=== PATIENT | female | born 1980 | race Caucasian/White ===

== ENCOUNTER → 2017-05-25 10:00 | Outpatient (CLI) | payer BC, SELFPAY ==
[2017-05-25 10:51] LABS: Absolute Lymphocyte Count 1.35 X10^3/ul (0.83-4.51); Absolute Neutrophil Count 3.4 X10^3/uL (2.0-7.7); Basophil# 0.03 X10^3/uL; Basophil% 0.5 % (0-1); Eosinophil# 0.07 X10^3/uL; Eosinophils% 1.3 % (0-5); Hematocrit 42.4 % (37-47); Hemoglobin 13.9 g/dl (12.0-15.0); Lymphocyte # 1.35 X10^3/ul (4.0); Lymphocyte % 24.7 % (19-41); Mean Corp Hgb Conc 32.8 g/gl (32-36); Mean Corpuscular Hgb 29.1 pg (27.0-32.0); Mean Corpuscular Volume 88.7 fL (81-99); Monocyte# 0.59 X10^3/uL; Monocyte% 10.8 % (0-10); Neutrophil # 3.41 X10^3/uL (2.7-7.7); Neutrophil % 62.3 % (47-70); POSITIVE COUNT NO; POSITIVE DIFFERENTIAL NO; POSITIVE MORPHOLOGY NO; Platelet Count 316 K/mm3 (150-450); RBC Distribution Width CV 13.3 % (11.6-14.6); RBC Distribution Width SD 42.8 fl (35.1-43.9); Red Blood Count 4.78 M/mm3 (4.2-5.4); White Blood Count 5.5 K/mm3 (4.4-11.0)
[2017-05-25 10:52] LABS: Color, Urine Yellow (Yellow); Glucose, Dipstick Normal (Normal); Ketone-Dipstick Negative (Negative); Leukocyte Esterase-Dipstick Negative /ul (Negative); Nitrite-Dipstick Negative (Negative); Occult Blood-Urine Negative /ul (Negative); Protein-Dipstick Negative (Negative); Specific Gravity, Urine 1.005 (1.002-1.030); Urine Bilirubin Dipstick Negative (Negative); Urine Clarity Clear (Clear); Urine Urobilinogen Normal (Normal)
[2017-05-25 11:17] LABS: Thyroid Stim Hormone (TSH) 1.47 uIU/mL (0.358-3.74)
[2017-05-26 09:40] LABS: HIV - WCH Non-Reactive (Nonreactive)
[2017-05-26 13:58] LABS: HEPATITIS B SURFACE AG Negative (Negative); Hep C Antibodies <0.1 s/co ratio (0.0-0.9)
[2017-05-28 03:48] LABS: Prenatal RPR NONREACTIVE (NONREACTIVE)
== END ==
PROVIDERS: Visit Provider Obstetrics & Gynecology
DX: Z34.81 Encounter for supervision of other normal pregnancy, first trimester (principal)
CPT/HCPCS: 36415; 81002; 84443; 85025; 86703; 86762; 86803; 87340

== ENCOUNTER → 2017-06-23 09:16 | Outpatient (CLI) | payer BC, SELFPAY ==
[2017-06-25 05:07] LABS: AFP MoM Value 0.64 (.); Comment Report (.); DIA MoM Value 0.53 (.); DSR (By Age) 239 (.); DSR (Second Trimester) 4808 (.); Gestat. Age Based On As provided (.); Gestational Age 15.1 WEEKS (.); Insulin Dep Diabetes No (.); hCG Value 23771 mIU/mL (.)
== END ==
PROVIDERS: Visit Provider Obstetrics & Gynecology
DX: O09.511 Supervision of elderly primigravida, first trimester (principal)
CPT/HCPCS: 36415; 82105; 82677; 84702; 86336

== ENCOUNTER → 2017-09-22 08:35 | Outpatient (CLI) | payer BC, SELFPAY ==
--- NOTE | 2017-09-22 08:35 | DT_ITS ---
This patient was seen during an EMR downtime September 20, 2017 - September 27, 2017. This patient may have a combination of paper and electronic documentation or all paper documentation. All documentation is viewable within the e-chart portion of [employer] for each patient visit.
[2017-09-26 10:04] LABS: Glucose Challenge Gest 1H 50g 120 mg/dL (70-140)
[2017-09-26 10:14] LABS: Red Blood Count 4.08 M/mm3 (4.2-5.4); White Blood Count 9.9 K/mm3 (4.4-11.0)
[2017-09-26 10:15] LABS: Hematocrit 36.3 % (37-47); Hemoglobin 11.8 g/dl (12.0-15.0); Mean Corp Hgb Conc 32.5 g/gl (32-36); Mean Corpuscular Hgb 28.9 pg (27.0-32.0); Mean Platelet Vol. 11.3 fl (6.2-12.0); Platelet Count 353 K/mm3 (150-450); RBC Distribution Width SD 44.2 fl (35.1-43.9); Scan Indicated on CBC? Y/N NO
== END ==
PROVIDERS: Visit Provider Obstetrics & Gynecology
DX: Z34.83 Encounter for supervision of other normal pregnancy, third trimester (principal)
CPT/HCPCS: 36415; 82950; 85027

== ENCOUNTER → 2017-11-24 15:23 | Outpatient (CLI) | payer BC, SELFPAY ==
[2017-11-24 18:30] LABS: Group B Strep DNA By PCR POSITIVE (Negative); Probe Check PASS
== END ==
PROVIDERS: Visit Provider Obstetrics & Gynecology
DX: Z36.85 Encounter for antenatal screening for Streptococcus B (principal)
CPT/HCPCS: 87653

== ENCOUNTER 2017-12-21 19:45 | Inpatient (IN) | payer BC, SELFPAY ==
[2017-12-21 20:23] VITALS: BMI 40.0
[2017-12-21] MEDS: 0.9% Saline Lock 10 ML Syringe IV (20:30)
[2017-12-21 20:46] LABS: Hematocrit 36.9 % (37-47); Hemoglobin 12.6 g/dl (12.0-15.0); Mean Corp Hgb Conc 34.1 g/gl (32-36); Mean Corpuscular Hgb 29.7 pg (27.0-32.0); Mean Platelet Vol. 11.3 fl (6.2-12.0); Platelet Count 352 K/mm3 (150-450); RBC Distribution Width SD 43.5 fl (35.1-43.9); Red Blood Count 4.24 M/mm3 (4.2-5.4); Scan Indicated on CBC? Y/N NO; White Blood Count 13.1 K/mm3 (4.4-11.0)
[2017-12-21] MEDS: miSOPROStol 25 MCG TABLET PO (20:51)
[2017-12-22] MEDS: miSOPROStol 25 MCG TABLET PO ×2 (01:24→05:18)
--- NOTE | 2017-12-22 07:35 | PCM.PN.BLA ---
Progress Note 41 wk induction oligo/ anhydramnios cytotec overnight. minimal cramping. Able to rest. States none of this was in her plan for delivery. But aware not able to continue expectant management 2/2 little to no fluid on sono. AVSS EFM 130-140s avg variability. Accels. Category I tracing. UCs rare. CX: dimple, midposition -3 Greco bulb inserted with stylette, 20 cc NS used to inflate bulb. Initially brisk bleeding noted. (continue to observe this for now) A/P: 41 wk induction oligo/anhydramnios. S/P Cytotec 3 doses. Cervix now dimple, midposition. moderately firm. D/C cytotec. Greco bulb placed. Pitocin and AROM when able. continue induction.
[2017-12-22] MEDS: 0.9% Normal Saline 100 ML IV.SOLN. INTRA-UTER (08:22)
[2017-12-22] MEDS: Lactated Ringers 1,000 ML 50 ML IV ×3 (09:09→21:00)
[2017-12-22] MEDS: Oxytocin 30 units/NS 500 ml 30 UNITS/500 ML IV.SOLN IV (09:09)
[2017-12-22] MEDS: 0.9% Saline Lock 10 ML Syringe IV (09:09)
--- NOTE | 2017-12-22 13:25 | PCM.PN.BLA ---
Progress Note LABOR INDUCTION OLIGO 41 wks. Uncomfortable with cervical townsend bulb. Pitocin at 10 mIU/min EFH 130-140 with accels Category I tracing. Occasional ? decel but not able to always track UCs. UCs q 2-3 mins for most part CX: Townsend deflated. Cx 2 cm anterior, approx 75% mod consistency, very high. AROM little to no fluid returned. Attempted IUPC placement but unable to guide through minimally dilated cervix. A/P: 41 wk induction Oligo with ROYAL 1 cm on sono 12/21/17. S/P Cytotec, Townsend bulb and now with Pitocin AROM performed. Continue Pitocin Declines pain med for now. States painful only with exam and what was just attempted (IUPC placement after AROM)
--- NOTE | 2017-12-22 13:29 | PN_ITS ---
Progress Note LABOR INDUCTION OLIGO 41 wks. Uncomfortable with cervical townsend bulb. Pitocin at 10 mIU/min EFH 130-140 with accels Category I tracing. Occasional ? decel but not able to always track UCs. UCs q 2-3 mins for most part CX: Townsend deflated. Cx 2 cm anterior, approx 75% mod consistency, very high. AROM little to no fluid returned. Attempted IUPC placement but unable to guide through minimally dilated cervix. A/P: 41 wk induction Oligo with ROYAL 1 cm on sono 12/21/17. S/P Cytotec, Townsend bulb and now with Pitocin AROM performed. Continue Pitocin Declines pain med for now. States painful only with exam and what was just attempted ( IUPC placement after AROM)
[2017-12-22] MEDS: Nalbuphine 10 MG/ML Ampul IV ×2 (13:41→20:30)
--- NOTE | 2017-12-22 16:41 | PCM.PN.BLA ---
Progress Note LABOR PROGRESS NOTE Got a dose of Nubain and was able to sleep for two hours. Not uncomfortable at all. Her mother is in the room and relates she had to have a C/s AVSS Pitocin at 12 mIU/min EFM 130-140 category I tracing. UCs irregular with dysfunctional pattern. Coupling, tripling and spacing. q 1 - 4 mins CX: remains very high. Anterior / mod firm. A/P: 41 wk oligo induction. Category I tracing. Prodromal labor. Not at all uncomfortable. reviewed plan of care. Continue induction, pitocin after AROM. recommend position changes to assist rotation and descent. Advised : -- if ROM and pitocin for 24 hr w/o change, consider C/S. -- If reaches active labor at 4-6 cm and no further change for at least 4 - 6 hrs (inadequate vs adequate UCs) consider C/S. Not at all uncomfortable. Very early prodromal phase Reg diet, light dinner. Continue induction.
[2017-12-22] MEDS: fentaNYL-bupivacaine (epidural) 100 ML BAG EPIDURAL (23:18)
--- NOTE | 2017-12-23 00:33 | PCM.PN.OB ---
Subjective: Feeling contractions strongly despite epidural. Objective: Afeb VSS - Physical Exam General: Alert, Oriented x3, Cooperative, No apparent distress Lungs: Clear to auscultation, Normal air movement Cardiovascular: Regular rate, Regular Rhythm Abdomen: Soft, Non-Distended, Gravid, Appropriate for Gestational Age Extremities: No edema Skin: No rashes Neurological: Neuro grossly intact Psych/Mental Status: Normal Affect Comment: CE FD +2 station Weight: 255 lb 8.252 oz Body Mass Index (BMI) 40.0 Intake and Output for Last 24 Hours 12/21/17 12/22/17 12/23/17 23:59 23:59 23:59 Intake Total 1490 / 1490 Output Total 1400 / 1400 Balance 90 / 90 Medical Necessity - Tobacco Use Smoking Status: Never smoker Assessment/Plan Progressed rapidly from 6 cm to FD. Now starting pushing efforts. CAT 1 FHR tracing. Expect .
--- NOTE | 2017-12-23 00:41 | PCM.DCVAG ---
Discharge Diet: No Restrictions Discharge Activity: Return to Normal Activity, May Drive, May Shower Return to work on:: 02/21/18 May shower in (days): 0 May resume sexual activity in: 4-6 weeks Call your doctor if your incision/area has: Sudden Increased Bleeding, Increased Pain/ Swelling, Foul Smelling Discharge Call your doctor if you observe: Fever of 101 or Higher, Inability to urinate, Inability to have a bowel movement, Using more than one pad per hour, Shortness of breath, Chest pain, Calf discomfort, Uncontrolled pain Cleanse incision/area with: Soap & Water Additional Instructions: If you experience any of the following, contact your healthcare provider. Bleeding that soaks a pad every hour for 2 hours Fever 100.4 or higher Unrelieved incision or abdominal pain Swelling, redness, discharge or bleeding from your incision or episiotomy site Your incision begins to separate Problems urinating (including inability to urinate or burning while urinating). Visual changes Severe headache Flu-like symptoms Pain or redness in one of both of your breasts Pain, warmth, tenderness or swelling in your legs, especially the calf area Frequent nausea and vomiting Symptoms of depression or anxiety If you experience any of the following, call 911 or go to the nearest Emergency Room. Chest pain Problems breathing Seizure activity Partial or complete paralysis of a body part, slurred speech, weakness or drooping of the face, or a sudden inability to walk or hold your balance Allergies/Adverse Reactions: Allergies mefloquine [From Lariam] Allergy (Verified 12/21/17 20:25) Other nightmares Medications to take at Discharge Ibuprofen 600 mg PO Q6H PRN PRN #30 tab 12/23/17 The following prescriptions were given: Ibuprofen 600 mg PO Q6H PRN PRN #30 tab PRN Reason: pain or cramping Please Follow Up With: Iesha Villafuerte MD When: 6 weeks Primary Care Physician: Robbie Velazquez MD [Primary Care Provider] - Test Results: Test results from this visit will be discussed in further detail at your follow-up appointment, if applicable.
[2017-12-23] MEDS: Oxytocin 30 units/NS 500 ml 30 UNITS/500 ML IV.SOLN 334 UNITS IV (00:56)
[2017-12-23] MEDS: Oxytocin 30 units/NS 500 ml 30 UNITS/500 ML IV.SOLN 167 UNITS IV (01:26)
--- NOTE | 2017-12-23 01:31 | PCM.OB.VAG ---
Vaginal Delivery Maternal Presentation: Medically Indicated Induction 41 weeks admitted for postdates induction Method of Induction: Pitocin, Cytotec Amniotic Membrane Rupture Type: Artificial Rupture of Membrane time: 729 Amniotic Fluid Description: Clear Final SHARLENE: 12/16/17 Final SHARLENE Source: US <20 weeks Gestational age: 41 Weeks and 0 Days Date of Procedure: 12/23/17 Pre-Operative Diagnosis: Labor Post-Operative Diagnosis: same Surgery/ Procedure Performed: Vacuum Assisted Vaginal Delivery Anesthesiologist: Darrell Brannon Type of Anesthesia: Epidural Description of Procedure: Patient admitted and underwent cytotec then pitocin induction. Progressed rapidly from 2 to 6 and then FD over about 2 hours. Pushed for about 30 minutes to bring heaf to +3 station. Due to heart rate decelerations to 60 decision made to assist delivery with Kiwi vacuum device. The the device was placed and by holding minimal traction while Holden pushed head was delivered over one contraction. There was a loose CAN x 1 easily reduced. After delivery there was an active cry within first minute of life. Delayed cord clamping was employed. The cord was then clamped and cut and baby placed on mom's chest. The placenta was delivered spontaneously intact with a centrally located 3VC. The uterus contracted well. Inspection revealed an intact cervix and upper vagina. A bilateral posterior vaginal second degree tear was repaired with 2-0 vicrylsuture. A smal right periurethral tear was repaired with 3-0 vicryl rapide suture. Presentation: Vertex Placental Delivery Description: Spontaneous Placenta Disposition: [facility] Percentage of Placenta Abruption: 0 Cord Vessel Description: 3 Vessels Nuchal Cord Compression: Without compression Cord Entanglement: Around neck x 1, loose Estimated Blood Loss: 400cc A gender: Male (1 minute): 8 (5 minute): 8 Episiotomy Description: None Laceration: Midline, Periurethral Extnsion/lac, Vaginal Extension/lac, 1st degree, 2nd degree Medications given after delivery: IV Pitocin Complications: None
[2017-12-23] MEDS: Ibuprofen 600 MG Tablet PO ×3 (06:22→19:03)
--- NOTE | 2017-12-23 07:46 | PCM.PN.OB ---
Subjective: Day of Delivery no void yet per RN. Pt breast feeding and would like to do that prior to attempting to void. Denies feeling full. Advised 8 hr w/o void is long interval. May need catheter reinsertion. Advised may use sono to check bladder vol prior to insertion of townsend. On pitocin for a long time, which will act as an antidiuretic hormone. Pain control adequate at present. Lacerations at delivery and states everything swollen. Objective: Sitting up, semirecumbent in bed, holding baby - Physical Exam General: Alert, Oriented x3, Cooperative, No apparent distress HEENT: Atraumatic Neck: Supple, Negative Carotid Bruits Abdomen: Soft - Fundus firm NT inferior to umbilicus Neurological: Cranial nerves II-XII grossly intact Weight: 115.9 kg Body Mass Index (BMI) 40.0 Intake and Output for Last 24 Hours 12/21/17 12/22/17 12/23/17 23:59 23:59 23:59 Intake Total 1490 / 1490 Output Total 1400 / 1400 Balance 90 / 90 Medical Necessity - Tobacco Use Smoking Status: Never smoker Assessment/Plan Day of Delivery 41 wk prolonged induction to vaginal delivery Stable pp. Bladder scan, consider townsend vs str cath prn Continue care.
[2017-12-23 08:00] VITALS: BP 128/71; PULSE 94; RESP 16; TEMP 37.1
[2017-12-23] MEDS: Acetaminophen 500 MG Tablet 1000 MG PO ×2 (08:13→16:11)
[2017-12-23 12:55] VITALS: BP 116/79; PULSE 101; RESP 16; TEMP 36.8; O2SAT 98
[2017-12-23 16:00] VITALS: BP 112/71; PULSE 98; RESP 24; TEMP 37.2; O2SAT 100
[2017-12-23 20:30] VITALS: BP 132/77; PULSE 104; RESP 16; TEMP 36.6
[2017-12-24 01:40] VITALS: BP 116/69; PULSE 83; RESP 16; TEMP 36.8
[2017-12-24] MEDS: Ibuprofen 600 MG Tablet PO ×2 (01:44→08:12)
[2017-12-24 04:30] VITALS: BP 108/73; PULSE 93; RESP 16; TEMP 36.9
[2017-12-24 04:53] LABS: Hematocrit 27.2 % (37-47); Hemoglobin 8.9 g/dl (12.0-15.0); Mean Corp Hgb Conc 32.7 g/gl (32-36); Mean Corpuscular Hgb 29.4 pg (27.0-32.0); Mean Corpuscular Volume 89.8 fL (81-99); Platelet Count 296 K/mm3 (150-450); RBC Distribution Width CV 13.9 % (11.6-14.6); RBC Distribution Width SD 43.6 fl (35.1-43.9); Red Blood Count 3.03 M/mm3 (4.2-5.4); Scan Indicated on CBC? Y/N NO; White Blood Count 12.7 K/mm3 (4.4-11.0)
--- NOTE | 2017-12-24 07:50 | PCM.PN.OB ---
Subjective: PPD#1 vaginal delivery. Bought her own Dermoplast. Amazing stuff. States surprised we don't have this in pharmacy. Breast feeding. Milk not in. Peds thinks baby will be ok to dischg today. Would like to go home today if able, and baby is released. Bili pending on baby. - Physical Exam General: Alert, Oriented x3, Cooperative, No apparent distress HEENT: Atraumatic Neck: Supple Abdomen: Soft - Fundus firm NT at umbilicus - 2 cm Neurological: Cranial nerves II-XII grossly intact Psych/Mental Status: Normal Affect Vital Signs Temp Pulse Resp BP Pulse Ox 98.4 F 93 16 108/73 100 12/24/17 04:30 12/24/17 04:30 12/24/17 04:30 12/24/17 04:30 12/23/17 16:00 Oxygen Delivery Method Room Air Weight: 115.9 kg Body Mass Index (BMI) 40.0 Intake and Output for Last 24 Hours 12/22/17 12/23/17 12/24/17 23:59 23:59 23:59 Intake Total 1490 / 1490 Output Total 1400 / 1400 600 / 600 Balance 90 / 90 -600 / -600 Laboratory Tests Past 24 Hrs 12/24/17 04:35 WBC 12.7 H RBC 3.03 L Hgb 8.9 L Hct 27.2 L MCV 89.8 MCH 29.4 MCHC 32.7 RDW 13.9 RDW Differential 43.6 Plt Count 296 MPV 11.0 Medical Necessity - Tobacco Use Smoking Status: Never smoker Assessment/Plan PPD#1 41 wk prolonged induction to vaginal delivery Stable pp. anemia but clinically stable. Would like to go home today. Decline repeat CBC, states will go in to her office to have checked prn . Recommended daily to bid iron supplement Sitz bath prn. Bought her own Dermoplast. D/C home. RTO in 6 wk for pp check,
--- NOTE | 2017-12-24 07:54 | PCM.DC.SUM ---
Discharge Date and Diagnosis Date of Admission: 12/21/17 - 41 wk oligo Date of Discharge: 12/24/17 - same, prolonged induction Hospital Course and Treatment Consultations 12/21/17 17:19 Consult: Anesthesia Routine Comment: Reason For Exam: LABOR Summary of Care Provided: The patient is a 37 year old at 40 6/7 wk induction for oligo VERY unfavorable cervix. Cytotec , then to Greco bulb and pitocin, AROM. Pitocin. Eventual delivery with epidural not fully functional after rapid progress from 2 to 6 cm , then 6 cm to complete. acute blood loss anemia, but clinically stable. Home on PPD#1 if baby is released (pending bilirubin) Exam benign. Breast feeding RTO in 6 wk for pp check. prn sooner. Discharge Diet: No Restrictions Discharge Activity: Return to Normal Activity, May Drive, May Shower Return to work on:: 02/21/18 May shower in (days): 0 May resume sexual activity in: 4-6 weeks Call your doctor if your incision/area has: Sudden Increased Bleeding, Increased Pain/ Swelling, Foul Smelling Discharge Call your doctor if you observe: Fever of 101 or Higher, Inability to urinate, Inability to have a bowel movement, Using more than one pad per hour, Shortness of breath, Chest pain, Calf discomfort, Uncontrolled pain Cleanse incision/area with: Soap & Water Home Medications: Medications to take at Discharge Ibuprofen 600 mg PO Q6H PRN PRN #30 tab 12/23/17 Following Prescrptions Were Given to Patient: Ibuprofen 600 mg PO Q6H PRN PRN #30 tab PRN Reason: pain or cramping Primary Care Physician: Robbie Velazquez MD [Primary Care Provider] - Please Follow Up With: Iesha Villafuerte MD Medical Necessity - Tobacco Use Smoking Status: Never smoker Meaningful Use Info Meaningful Use Diagnoses (Choose all that apply): None applicable
[2017-12-24 08:30] VITALS: BP 117/85; PULSE 98; RESP 16; TEMP 36.8; O2SAT 98
[2017-12-24 14:00] VITALS: BP 125/81; PULSE 107; RESP 18; TEMP 37.4; O2SAT 96
== END 2017-12-24 15:55 | disposition home or self-care (01) | DRG 774 ==
PROVIDERS: Obstetrics & Gynecology; Admitting Provider Obstetrics & Gynecology; Family Provider Family Medicine; PCP Family Medicine; Visit Provider Obstetrics & Gynecology
DX: O48.0 Post-term pregnancy (principal); O98.82 Other maternal infectious and parasitic diseases complicating childbirth; O41.03X0 Oligohydramnios, third trimester, not applicable or unspecified; O71.4 Obstetric high vaginal laceration alone; D62 Acute posthemorrhagic anemia; Z3A.40 40 weeks gestation of pregnancy; B95.1 Streptococcus, group B, as the cause of diseases classified elsewhere; O76 Abnormality in fetal heart rate and rhythm complicating labor and delivery; O69.81X0 Labor and delivery complicated by cord around neck, without compression, not applicable or unspecified; O71.82 Other specified trauma to perineum and vulva; Z37.0 Single live birth; O90.81 Anemia of the puerperium
CPT/HCPCS: 59025; 59050; 85027; 86850; 86900; 99218; J7120; A4216; G0378; J0290

== ENCOUNTER → 2019-03-03 | Outpatient (CLI) | payer BC, SELFPAY ==
[2019-03-07 20:32] LABS: HPV APTIMA, High Risk Negative (Negative); HPV Reflexed? YES, CHARGE PATIENT
== END | disposition home or self-care (01) ==
LOC: LABSPEC 12:11
PROVIDERS: Family Provider Family Medicine; PCP Family Medicine; Referring Provider Obstetrics & Gynecology; Visit Provider Obstetrics & Gynecology
DX: Z12.4 Encounter for screening for malignant neoplasm of cervix (principal)
CPT/HCPCS: 87624; 88175; G0145

== ENCOUNTER → 2020-02-23 13:08 | Outpatient (CLI) | payer BC, SELFPAY ==
[2020-02-23 14:46] LABS: Absolute Lymphocyte Count 2.19 X10^3/uL (0.83-4.51); Absolute Neutrophil Count 8.3 X10^3/uL (2.0-7.7); Basophil# 0.02 X10^3/uL; Basophil% 0.2 % (0-1); Eosinophil# 0.12 X10^3/uL; Eosinophils% 1.1 % (0-5); Hematocrit 41.7 % (37-47); Hemoglobin 13.4 g/dL (12.0-15.0); Lymphocyte # 2.19 X10^3/ul (4.0); Lymphocyte % 19.2 % (19-41); Mean Corp Hgb Conc 32.1 g/dL (32-36); Mean Corpuscular Hgb 28.8 pg (27.0-32.0); Mean Corpuscular Volume 89.5 fL (81-99); Monocyte# 0.68 X10^3/uL; NRBC Flagged by Analyzer 0 % (0-5); Neutrophil # 8.34 X10^3/uL (2.7-7.7); Neutrophil % 72.9 % (47-70); Platelet Count 375 K/mm3 (150-450); RBC Distribution Width SD 42.1 fl (35.1-43.9); Red Blood Count 4.66 M/mm3 (4.2-5.4); White Blood Count 11.4 K/mm3 (4.4-11.0)
[2020-02-23 14:57] LABS: Color, Urine Yellow (Yellow); Glucose, Dipstick Normal (Normal); Ketone-Dipstick Negative (Negative); Leukocyte Esterase-Dipstick Negative /ul (Negative); Nitrite-Dipstick Negative (Negative); Occult Blood-Urine Negative /ul (Negative); Protein-Dipstick Negative (Negative); Urine Bilirubin Dipstick Negative (Negative); Urine Clarity Clear (Clear); Urine Urobilinogen Normal (Normal); Urine pH 6.5 (5.0 - 8.0)
[2020-02-23 15:43] LABS: HIV - WCH Non-Reactive (Nonreactive); Hepatitis B Surface Antigen Non-Reactive (Nonreactive); Hepatitis C Antibody Non-Reactive (Nonreactive); Rubella IgG Equiv (Nonreactive)
[2020-02-27 03:07] LABS: Chlamydia By Nucleic Acid AMP Negative (Negative)
[2020-02-27 06:28] LABS: Gonococcus By Nucleic Acid AMP Negative (Negative)
[2020-02-29 01:21] LABS: Prenatal RPR NONREACTIVE (NONREACTIVE)
== END ==
PROVIDERS: PCP Family Medicine; Visit Provider Obstetrics & Gynecology
DX: Z34.81 Encounter for supervision of other normal pregnancy, first trimester (principal)
CPT/HCPCS: 36415; 81002; 85025; 86703; 86762; 86803; 87086; 87088; 87340; 87491; 87591

== ENCOUNTER → 2020-08-28 | Outpatient (CLI) | payer BC, SELFPAY | END | disposition home or self-care (01) | LOC: LABSPEC 13:08 | PROVIDERS: PCP Family Medicine; Visit Provider Obstetrics & Gynecology | DX: Z36.85 Encounter for antenatal screening for Streptococcus B (principal) | CPT/HCPCS: 87077; 87081; 87186 ==

== ENCOUNTER → 2020-09-13 10:44 | Outpatient (CLI) | payer BC, SELFPAY ==
[2020-09-13 10:49] LABS: Bacteria 0 SEEN /hpf (None Seen); Mucous, Urine 0 SEEN /hpf (<or=2+); Red Blood Cells-Urine 0 SEEN /hpf (0-5); White Blood Cells 0 SEEN /hpf (0-5)
[2020-09-13 11:34] LABS: Color, Urine Straw (Yellow); Glucose, Dipstick 250 mg/dl (Normal); Ketone-Dipstick 5 mg/dl (Negative); Leukocyte Esterase-Dipstick 25 /ul (Negative); Nitrite-Dipstick Negative (Negative); Occult Blood-Urine Negative /ul (Negative); Protein-Dipstick Negative (Negative); Specific Gravity, Urine 1.005 (1.002-1.030); Urine Bilirubin Dipstick Negative (Negative); Urine Clarity Clear (Clear); Urine Urobilinogen Normal (Normal)
[2020-09-13 11:36] LABS: Hematocrit 36.6 % (37-47); Hemoglobin 12.2 g/dL (12.0-15.0); Mean Corp Hgb Conc 33.3 g/dL (32-36); Mean Corpuscular Hgb 29.2 pg (27.0-32.0); Mean Corpuscular Volume 87.6 fL (81-99); Mean Platelet Vol. 10.9 fl (6.2-12.0); Platelet Count 366 K/mm3 (150-450); RBC Distribution Width CV 13.7 % (11.6-14.6); RBC Distribution Width SD 43.8 fl (35.1-43.9); Red Blood Count 4.18 M/mm3 (4.2-5.4)
[2020-09-13 11:39] LABS: Squamous Epithelial Cells - UA 0-5 SEEN /hpf (5-10)
[2020-09-13 11:47] LABS: Protein, Urine (Random) 8.8 mg/dL (<11.9); Protein:Creat Ratio 281 mg/g CRE (0-200)
[2020-09-13 12:15] LABS: ALB/GLOB Ratio 0.5 RATIO (0.9-2.4); AST(SGOT) 17 U/L (15-37); Alanine Aminotransfer ALT/SGPT 19 U/L (13-56); Albumin, Serum 2.4 g/dL (3.2-5.0); Alkaline Phosphatase 149 U/L (45-117); Anion Gap 7 (5-15); BUN 5 mg/dL (7-18); BUN/Creat Ratio 9.2 RATIO (10-20); Calcium,Total 8.7 mg/dL (8.5-10.1); Chloride 107 mmol/L (98-107); Creatinine, Serum 0.54 mg/dL (0.55-1.02); EST Glomerular Filtration Rate 133 mL/min (>60); Est Glom Filt Rate - Afr Amer 161 mL/min (>60); Globulin 4.5 g/dL (2.2-4.2); Glucose 74 mg/dL (74-106); LDH 170 U/L (84-246); Potassium 3.5 mmol/L (3.5-5.1); Protein, Total 6.9 g/dL (6.4-8.2); Sodium Level 138 mmol/L (136-145)
== END ==
PROVIDERS: Visit Provider Obstetrics & Gynecology
DX: Z34.93 Encounter for supervision of normal pregnancy, unspecified, third trimester (principal)
CPT/HCPCS: 36415; 80053; 81001; 82570; 83615; 84156; 85027

== ENCOUNTER 2020-09-19 17:25 | Inpatient (IN) | payer BC, SELFPAY ==
[2020-09-19 17:53] VITALS: BMI 42.5
[2020-09-19 17:59] VITALS: BP 153/89; PULSE 94; TEMP 36.8; O2SAT 97
[2020-09-19 18:00] VITALS: PULSE 92; O2SAT 97
[2020-09-19] MEDS: Lactated Ringers 1,000 ML 50 ML IV (18:13)
[2020-09-19 18:35] LABS: Absolute Neutrophil Count 8.8 X10^3/uL (2.0-7.7); Basophil# 0.02 X10^3/uL; Basophil% 0.2 % (0-1); Eosinophil# 0.11 X10^3/uL; Eosinophils% 0.9 % (0-5); Hematocrit 38.8 % (37-47); Hemoglobin 12.6 g/dL (12.0-15.0); Lymphocyte % 17.1 % (19-41); Mean Corp Hgb Conc 32.5 g/dL (32-36); Mean Corpuscular Hgb 28.7 pg (27.0-32.0); Mean Corpuscular Volume 88.4 fL (81-99); Mean Platelet Vol. 11.3 fl (6.2-12.0); Monocyte# 0.72 X10^3/uL; Monocyte% 6.2 % (0-10); NRBC Flagged by Analyzer 0 % (0-5); Neutrophil # 8.76 X10^3/uL (2.7-7.7); Neutrophil % 75.1 % (47-70); Platelet Count 347 K/mm3 (150-450); RBC Distribution Width CV 13.6 % (11.6-14.6); RBC Distribution Width SD 43.7 fl (35.1-43.9); Red Blood Count 4.39 M/mm3 (4.2-5.4); White Blood Count 11.7 K/mm3 (4.4-11.0)
[2020-09-19 18:58] LABS: Protein, Urine (Random) 16.5 mg/dL (<11.9); Protein:Creat Ratio 217 mg/g CRE (0-200)
[2020-09-19 19:08] LABS: ALB/GLOB Ratio 0.5 RATIO (0.9-2.4); AST(SGOT) 16 U/L (15-37); Alanine Aminotransfer ALT/SGPT 17 U/L (13-56); Albumin, Serum 2.5 g/dL (3.2-5.0); Alkaline Phosphatase 151 U/L (45-117); Anion Gap 9 (5-15); BUN 7 mg/dL (7-18); BUN/Creat Ratio 11.9 RATIO (10-20); Calcium,Total 8.9 mg/dL (8.5-10.1); Chloride 106 mmol/L (98-107); Creatinine, Serum 0.59 mg/dL (0.55-1.02); EST Glomerular Filtration Rate 121 mL/min (>60); Est Glom Filt Rate - Afr Amer 146 mL/min (>60); Estimated Creatinine Clearance 125.72 ml/min; Globulin 4.7 g/dL (2.2-4.2); Glucose 79 mg/dL (74-106); LDH 146 U/L (84-246); Potassium 3.9 mmol/L (3.5-5.1); Protein, Total 7.2 g/dL (6.4-8.2); Sodium Level 138 mmol/L (136-145)
--- NOTE | 2020-09-19 19:14 | PCM.HP.BLA ---
History and Physical Date of Admission: 09/19/20 Chief complaint: Gestational hypertension History of present illness: 39-year-old G2, P1 at 39 weeks and 4 days with SHARLENE: 09/23/2019 1 x 9-week ultrasound arrives for induction of labor for gestational hypertension. Patient denies headache, chest pain, shortness of breath, visual changes, nausea vomiting, right upper quadrant pain. Patient states good movement. is complicated by AMA, GBS positive, and now gestational hypertension Obstetric history: G1: 41-week , oligohydramnios 12/23/2017 G2: Current Past medical history: Negative Locations: vitamin, aspirin Past surgical history: ACL Allergies: Lariam Social: Denies smoking, alcohol use, drug use Family history: Denies history DVT or PE Review of systems: Besides above pertinent positives a full review of systems was performed and found to be negative Physical exam: Vital signs: Blood pressure 153/89 pulse 92 SPO2 97% on room air General: Normal-appearing no acute distress HEENT: Normocephalic atraumatic no cervical lymphadenopathy Cardiac/respiratory: No use of accessory muscles, nonlabored breathing Abdomen: Soft, nontender, gravid Pelvic exam: Cervical exam 50/-2 Extremities: No peripheral edema normal peripheral pulses Psych: Normal affect normal demeanor nonpressured speech Labs: White blood cell count 11.7 hemoglobin 12.6 hematocrit 38.8% platelets 347. Sodium 138 potassium 3.9 creatinine 0.59, AST 16, ALT 17, LDH 146. Urine protein creatinine ratio 0.21. Blood type A positive Assessment and plan: 39-year-old G2, P1 at 39 weeks and 4 days arrives for induction of labor for gestational hypertension Admit to labor and delivery CEFM GBS positive: To start penicillin Gestational hypertension: Patient asymptomatic, help labs within normal limits. We will continue to monitor blood pressures and treat as needed Cytotec induction Anesthesia see
[2020-09-19 19:16] VITALS: BP 142/89; PULSE 94; TEMP 36.4; O2SAT 98
[2020-09-19] MEDS: miSOPROStol 25 MCG TABLET VAGINAL (19:50)
[2020-09-19 20:16] LABS: Mucous, Urine 0 SEEN /hpf (<or=2+); Red Blood Cells-Urine 0 SEEN /hpf (0-5); White Blood Cells 0 SEEN /hpf (0-5)
[2020-09-19 20:17] LABS: Color, Urine Yellow (Yellow); Glucose, Dipstick Normal (Normal); Ketone-Dipstick 15 mg/dl (Negative); Leukocyte Esterase-Dipstick 25 /ul (Negative); Nitrite-Dipstick Negative (Negative); Occult Blood-Urine Negative /ul (Negative); Protein-Dipstick Negative (Negative); Urine Bilirubin Dipstick Negative (Negative); Urine Clarity Clear (Clear); Urine Urobilinogen Normal (Normal); Urine pH 6.5 (5.0 - 8.0)
[2020-09-19 20:26] LABS: Bacteria RARE /hpf (None Seen); Squamous Epithelial Cells - UA 0-5 SEEN /hpf (5-10)
[2020-09-19] MEDS: miSOPROStol 50 MCG TABLET VAGINAL (23:53)
[2020-09-19 23:56] VITALS: BP 134/66; TEMP 37.3
[2020-09-19 23:57] VITALS: PULSE 89; O2SAT 97
[2020-09-20] VITALS (65 sets, daily range): BP systolic 106–162; BP diastolic 57–84; PULSE 70–112; RESP 16–18; TEMP 36.4–37.2; O2SAT 82–100
[2020-09-20] MEDS: Lactated Ringers 500 ML 999 ML IV ×4 (05:46→15:06)
--- NOTE | 2020-09-20 07:22 | PN.OBGYN_ITS ---
Subjective Subjective No overnight complaints. Comfortable with contractions Objective Data Objective Data Vital Signs: Vital Signs Temp Pulse BP Pulse Ox 99.0 F 101 H 139/82 H 99 09/20/20 04:08 09/20/20 07:20 09/20/20 07:20 09/20/20 04:08 Weight: 271 lb 9.752 oz Body Mass Index (BMI) 42.5 Intake & Output: Intake and Output for Last 24 Hours 09/18/20 09/19/20 09/20/20 23:59 23:59 23:59 Intake Total 348.33 / 348.33 849.17 / 849.17 Balance 348.33 / 348.33 849.17 / 849.17 Lab / Micro Data Result Diagrams: 09/19/20 18:10 09/19/20 18:10 Labs: Laboratory Results - last 24 hr 09/19/20 09/19/20 09/19/20 18:10 18:10 18:10 WBC 11.7 H RBC 4.39 Hgb 12.6 Hct 38.8 MCV 88.4 MCH 28.7 MCHC 32.5 RDW Std Deviation 43.7 RDW Coeff of [place] 13.6 Plt Count 347 MPV 11.3 Immature Gran % (Auto) 0.500 Neut % (Auto) 75.1 H Lymph % (Auto) 17.1 L [place] % (Auto) 6.2 Eos % (Auto) 0.9 Baso % (Auto) 0.2 Absolute Neuts (auto) 8.8 H Absolute Lymphs (auto) 2.00 Nucleated RBC % 0 Sodium 138 Potassium 3.9 Chloride 106 Carbon Dioxide 23.0 Anion Gap 9 BUN 7 Creatinine 0.59 Estim Creat Clear Calc 125.72 Est GFR (MDRD) Af Amer 146 Est GFR (MDRD) Non-Af 121 BUN/Creatinine Ratio 11.9 Glucose 79 Calcium 8.9 Total Bilirubin 0.20 AST 16 ALT 17 Alkaline Phosphatase 151 H Lactate Dehydrogenase 146 Total Protein 7.2 Albumin 2.5 L Globulin 4.7 H Albumin/Globulin Ratio 0.5 L Urine Color Urine Clarity Urine pH Ur Specific [place] Urine Protein Urine Glucose (UA) Urine Ketones Urine Occult Blood Urine Nitrite Urine Bilirubin Urine Urobilinogen Ur Leukocyte Esterase Urine RBC Urine WBC Ur Squamous Epith Cells Urine Bacteria Urine Mucus U Random Total Protein Urine Creatinine Protein/Creatinin Ratio Blood Type A POSITIVE Antibody Screen NEGATIVE 09/19/20 09/19/20 18:15 19:23 WBC RBC Hgb Hct MCV MCH MCHC RDW Std Deviation RDW Coeff of [place] Plt Count MPV Immature Gran % (Auto) Neut % (Auto) Lymph % (Auto) [place] % (Auto) Eos % (Auto) Baso % (Auto) Absolute Neuts (auto) Absolute Lymphs (auto) Nucleated RBC % Sodium Potassium Chloride Carbon Dioxide Anion Gap BUN Creatinine Estim Creat Clear Calc Est GFR (MDRD) Af Amer Est GFR (MDRD) Non-Af BUN/Creatinine Ratio Glucose Calcium Total Bilirubin AST ALT Alkaline Phosphatase Lactate Dehydrogenase Total Protein Albumin Globulin Albumin/Globulin Ratio Urine Color Yellow Urine Clarity Clear Urine pH 6.5 Ur Specific [place] 1.010 Urine Protein Negative Urine Glucose (UA) Normal Urine Ketones 15 H Urine Occult Blood Negative Urine Nitrite Negative Urine Bilirubin Negative Urine Urobilinogen Normal Ur Leukocyte Esterase 25 H Urine RBC 0 SEEN Urine WBC 0 SEEN Ur Squamous Epith Cells 0-5 SEEN Urine Bacteria RARE Urine Mucus 0 SEEN U Random Total Protein 16.5 H Urine Creatinine 76.00 Protein/Creatinin Ratio 217 H Blood Type Antibody Screen Micro: Microbiology 09/19/20 18:15 Nasal Secretion SARS-CoV-2 Antigen (Rapid) - Final Physical Exam Const alert, oriented x3 and no apparent distress HEENT normocephalic and moist oral mucous membranes Head and Scalp: atraumatic Neck full ROM Resp normal respiratory effort, no retractions and no use of accessory muscles Narrative: Cervical exam: 1/50/-3 Extremity normal to inspection, full ROM and no clubbing, cyanosis or edema Psych mental status grossly normal, affect normal, speech normal and activity/motor behavior normal NST FHR Rate Baby A Baseline: 130 Variability:: Moderate Accelerations:: 15 x 15 Decelerations:: None FHR Category:: Category I Uterine Activity:: every 2 minutes Assessment & Plan (1) : PLAN: Patient seen and examined. Status post 2 doses of Cytotec. Unchanged cervix. Based on current toco will hold next Cytotec dose. Will monitor and consider Pitocin versus repeat Cytotec dose. Blood pressure stable. Patient asymptomatic.
[2020-09-20] MEDS: Lactated Ringers 1,000 ML 200 ML IV (10:26)
[2020-09-20] MEDS: Ondansetron 4 MG/2 ML Vial IV (11:31)
[2020-09-20] MEDS: fentaNYL-bupivacaine (epidural) 100 ML BAG EPIDURAL (12:40)
--- NOTE | 2020-09-20 13:10 | PCM.PN.OB ---
Subjective Subjective Comfortable with epidural. Objective Data Objective Data Vital Signs: Vital Signs Temp Pulse BP Pulse Ox 98.2 F 100 106/58 L 88 09/20/20 13:05 09/20/20 13:08 09/20/20 13:08 09/20/20 13:06 Weight: 123.2 kg Body Mass Index (BMI) 42.5 Intake & Output: Intake and Output for Last 24 Hours 09/18/20 09/19/20 09/20/20 23:59 23:59 23:59 Intake Total 348.33 / 348.33 2170.00 / 2170.00 Balance 348.33 / 348.33 2170.00 / 2170.00 Lab / Micro Data Result Diagrams: 09/19/20 18:10 09/19/20 18:10 Labs: Laboratory Results - last 24 hr 09/19/20 09/19/20 09/19/20 18:10 18:10 18:10 WBC 11.7 H RBC 4.39 Hgb 12.6 Hct 38.8 MCV 88.4 MCH 28.7 MCHC 32.5 RDW Std Deviation 43.7 RDW Coeff of [place] 13.6 Plt Count 347 MPV 11.3 Immature Gran % (Auto) 0.500 Neut % (Auto) 75.1 H Lymph % (Auto) 17.1 L [place] % (Auto) 6.2 Eos % (Auto) 0.9 Baso % (Auto) 0.2 Absolute Neuts (auto) 8.8 H Absolute Lymphs (auto) 2.00 Nucleated RBC % 0 Sodium 138 Potassium 3.9 Chloride 106 Carbon Dioxide 23.0 Anion Gap 9 BUN 7 Creatinine 0.59 Estim Creat Clear Calc 125.72 Est GFR (MDRD) Af Amer 146 Est GFR (MDRD) Non-Af 121 BUN/Creatinine Ratio 11.9 Glucose 79 Calcium 8.9 Total Bilirubin 0.20 AST 16 ALT 17 Alkaline Phosphatase 151 H Lactate Dehydrogenase 146 Total Protein 7.2 Albumin 2.5 L Globulin 4.7 H Albumin/Globulin Ratio 0.5 L Urine Color Urine Clarity Urine pH Ur Specific [place] Urine Protein Urine Glucose (UA) Urine Ketones Urine Occult Blood Urine Nitrite Urine Bilirubin Urine Urobilinogen Ur Leukocyte Esterase Urine RBC Urine WBC Ur Squamous Epith Cells Urine Bacteria Urine Mucus U Random Total Protein Urine Creatinine Protein/Creatinin Ratio Blood Type A POSITIVE Antibody Screen NEGATIVE 09/19/20 09/19/20 18:15 19:23 WBC RBC Hgb Hct MCV MCH MCHC RDW Std Deviation RDW Coeff of [place]son Plt Count MPV Immature Gran % (Auto) Neut % (Auto) Lymph % (Auto) [place] % (Auto) Eos % (Auto) Baso % (Auto) Absolute Neuts (auto) Absolute Lymphs (auto) Nucleated RBC % Sodium Potassium Chloride Carbon Dioxide Anion Gap BUN Creatinine Estim Creat Clear Calc Est GFR (MDRD) Af Amer Est GFR (MDRD) Non-Af BUN/Creatinine Ratio Glucose Calcium Total Bilirubin AST ALT Alkaline Phosphatase Lactate Dehydrogenase Total Protein Albumin Globulin Albumin/Globulin Ratio Urine Color Yellow Urine Clarity Clear Urine pH 6.5 Ur Specific [place] 1.010 Urine Protein Negative Urine Glucose (UA) Normal Urine Ketones 15 H Urine Occult Blood Negative Urine Nitrite Negative Urine Bilirubin Negative Urine Urobilinogen Normal Ur Leukocyte Esterase 25 H Urine RBC 0 SEEN Urine WBC 0 SEEN Ur Squamous Epith Cells 0-5 SEEN Urine Bacteria RARE Urine Mucus 0 SEEN U Random Total Protein 16.5 H Urine Creatinine 76.00 Protein/Creatinin Ratio 217 H Blood Type Antibody Screen Micro: Microbiology 09/19/20 18:15 Nasal Secretion SARS-CoV-2 Antigen (Rapid) - Final Physical Exam Const alert, oriented x3 and no apparent distress Manual OB Exam: dilated 4/60/-2 Amniotic Fluid: clear amniotic fluid NST FHR Rate Baby A Baseline: 130 Variability:: Moderate Accelerations:: 15 x 15 Decelerations:: None NST Reactive:: Yes FHR Category:: Category I Uterine Activity:: 06/26 Assessment & Plan (1) 39 weeks gestation of : PLAN: Latent labor s/p cytotec x 2 Amniotomy performed, clear fluid and IUPC, ISE placed Previous decelerations appear resolved following amniotomy (2) Gestational HTN: QUALIFIERS: Trimester: third trimester Qualified Code(s): O13.3 - Gestational [-induced] hypertension without significant proteinuria, third trimester PLAN: BPs stable
[2020-09-20] MEDS: Oxytocin 30 units/NS 500 ml 30 UNITS/500 ML IV.SOLN 334 UNITS IV (16:22)
--- NOTE | 2020-09-20 18:46 | OP.PCM_ITS ---
Assessment & Plan (1) (spontaneous vaginal delivery): (2) Gestational HTN: QUALIFIERS: Trimester: third trimester Qualified Code(s): O13.3 - Gestational [-induced] hypertension without significant proteinuria, third trimester Maternal Data Information SHARLENE Calculator Estimated Delivery Date Method Current WG Current Estimate 09/22/20 Manual 39w 5d by 9 week U S Final SHARLENE: 09/21/20 Vaginal Delivery Maternal Presentation Maternal Presentation: Medically Indicated Induction Type of Induction: Cytotec Medical Reason for Induction: Gestational Hypertension Operative Information Date of Procedure: 09/20/20 Pre-Operative Diagnosis: 39 5/7 weeks gestation Gestational hypertension Post-Operative Diagnosis: 39 5/7 weeks gestation Gestational hypertension Surgery / Procedure Performed: Spontaneous Vaginal Delivery Type of Anesthesia: Epidural Anesthesiologist: Darrell Brannon Drain: Greco to straight drain Estimated Blood Loss: 400 ml Findings Presentation: Vertex Amniotic Membrane Rupture Type: Artificial Amniotic Fluid Description: Clear Placental Delivery Description: Spontaneous Placenta Disposition: [facility] Cord Vessel Description: 3 Vessels Cord Entanglement: Around neck x 1, loose Nuchal Cord Compression: Without compression Cord Gases: ABG and VBG Infant A Gender: Female (1 minute): 8 (5 minute): 9 Delayed Cord Clamping: Yes Post Vaginal Delivery Medications Given After Delivery: IV Pitocin Episiotomy Description: None Laceration: Midline, Vaginal Extension/lac and 1st degree Complication Complications: None
[2020-09-20] MEDS: 0.9% Saline Lock 10 ML Syringe IV (19:05)
[2020-09-21 04:10] VITALS: BP 143/83; PULSE 100; RESP 16; TEMP 36.8; O2SAT 98
[2020-09-21 08:00] VITALS: BP 136/81; PULSE 89; RESP 18; TEMP 36.8; O2SAT 97
--- NOTE | 2020-09-21 09:48 | PCM.PN.OB ---
Subjective Subjective Pain controlled, out of bed, ambulating without difficulty. Voiding without difficulty. . Denies heavy lochia, headache, vision changes. She feels well. Objective Data Objective Data Vital Signs: Vital Signs Temp Pulse Resp BP Pulse Ox 98.2 F 89 18 136/81 H 97 09/21/20 08:00 09/21/20 08:00 09/21/20 08:00 09/21/20 08:00 09/21/20 08:00 Oxygen Delivery Method Room Air Weight: 123.2 kg Body Mass Index (BMI) 42.5 Intake & Output: Intake and Output for Last 24 Hours 09/19/20 09/20/20 09/21/20 23:59 23:59 23:59 Intake Total 348.33 / 348.33 4746.67 / 4746.67 Output Total 1250 / 1950 1500 / 1500 Balance 348.33 / 348.33 3496.67 / 2796.67 -1500 / -1500 Lab / Micro Data Result Diagrams: 09/19/20 18:10 09/19/20 18:10 Micro: Microbiology 09/19/20 18:15 Nasal Secretion SARS-CoV-2 Antigen (Rapid) - Final Physical Exam Const alert, oriented x3 and no apparent distress Resp normal respiratory effort and normal air movement Cardio regular rate, regular rhythm, S1 normal heart sound and S2 normal heart sound Narrative: Lochia scant Uterus Palpation: uterus fundus firm and other OB fundus nontender Extremity no calf tenderness Neuro oriented x3 Assessment & Plan (1) (spontaneous vaginal delivery): PLAN: A positive Rubella equivocal - pt declined Routine care Plan for d/c home at 24 hours if BPs remain appropriate. Discussed with patient home BP monitoring. 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 (2) Gestational HTN: QUALIFIERS: Trimester: third trimester Qualified Code(s): O13.3 - Gestational [-induced] hypertension without significant proteinuria, third trimester
--- NOTE | 2020-09-21 10:00 | PCM.DC ---
Discharge Instructions Diet Discharge Diet: No restrictions Activity May resume sexual activity in: 4-6 weeks Dressing / Incision Call your doctor if you observe: Fever of 101 or Higher, Using more than one pad per hour, Shortness of breath, Chest pain, Calf discomfort, Uncontrolled pain and - (Persistent or severe headache, vision changes) Follow Up Care Please Follow Up With: Manolo Bhatt MD When: 7-10 days for telehealth visit 6 weeks for visit Test Results: Test results from this visit will be discussed in further detail at your follow-up appointment, if applicable. Discharge Plan Admission Admit Date/Time: 09/19/20 17:25 Primary Reason for Your Visit: Gestational hypertension, Vaginal Delivery Attending Provider: Leeanne Sultana Instructions Patient Instructions: After a Vaginal , Taking Your Blood Pressure Discharge Orders/Prescriptions Prescriptions: New ibuprofen 600 mg tablet 600 mg PO TID PRN (Reason: pain) Qty: 30 RF: 0 Continued [id number] 1 mg Tablet 1 tab PO DAILY RF: 0 calcium phos,dibas-vitamin D3 77-400 mg-unit Tablet 1 tab PO DAILY RF: 0 Disposition Disposition (needs filled in before D/C Order can be placed): Home, self care
[2020-09-21 12:35] VITALS: BP 134/94; PULSE 83; RESP 16; TEMP 36.8; O2SAT 96
[2020-09-21 16:24] VITALS: BP 139/87; PULSE 90; RESP 16; TEMP 36.8; O2SAT 98
== END 2020-09-21 17:14 | disposition home or self-care (01) | DRG 806 ==
PROVIDERS: Obstetrics & Gynecology; Admitting Provider Obstetrics & Gynecology; Visit Provider Obstetrics & Gynecology
DX: O13.4 Gestational [pregnancy-induced] hypertension without significant proteinuria, complicating childbirth (principal); O98.82 Other maternal infectious and parasitic diseases complicating childbirth; Z37.0 Single live birth; B95.1 Streptococcus, group B, as the cause of diseases classified elsewhere; O69.81X0 Labor and delivery complicated by cord around neck, without compression, not applicable or unspecified; O70.0 First degree perineal laceration during delivery; Z3A.39 39 weeks gestation of pregnancy
CPT/HCPCS: 59025; 59050; 80053; 81001; 82570; 83615; 84156; 85025; 86850; 86900; 86901; 87426; 99218; J7120; A4216; G0378; J2405

== ENCOUNTER → 2021-08-29 | Outpatient (CLI) | payer BC, SELFPAY ==
[2021-09-05 11:07] LABS: HPV APTIMA, High Risk Negative (Negative)
== END | disposition home or self-care (01) ==
LOC: LABSPEC 12:17
PROVIDERS: Visit Provider Obstetrics & Gynecology
DX: Z12.4 Encounter for screening for malignant neoplasm of cervix (principal)
CPT/HCPCS: 87624; 88175; G0145

== ENCOUNTER → 2022-01-16 | Outpatient (CLI) | payer BC, SELFPAY ==
--- NOTE | 2022-01-16 15:42 | BI_ITS ---
MAMMOGRAPHY - BILATERAL SCREENING REASON FOR EXAM: Female, 41 years old. Routine annual screening examination. PERTINENT HISTORY: Grandmother with breast cancer. TECHNIQUE: Digital bilateral breast jonel (3D mammographic acquisition) in the CC and MLO projections. 2-D mediolateral oblique (MLO) and craniocaudad (CC) views of both breasts were obtained. CAD: Full Field Digital Mammography with Computer Added Detection was performed. COMPARISON: None. Baseline examination. FINDINGS: Breast Composition: The breasts are extremely dense, which lowers the sensitivity of mammography. There are no dominant masses or suspicious calcifications. No other significant abnormalities are identified. BI/SCRN MAMM (CAD)W/JONEL BILAT IMPRESSION: Negative screening mammogram. Yearly followup mammogram recommended. (A) ASSESSMENT CATEGORY: BIRADS Category 1: Negative. A letter regarding these results will be sent to the patient by the facility within 30 days. Approximately 10% of breast cancers are not detected by mammography. A normal mammogram should not delay biopsy of a clinically suspicious abnormality. [id number] Electronically Signed: Max Carranza MD at 9:03 EDT ,
== END | disposition home or self-care (01) ==
LOC: OPBI 15:40
PROVIDERS: PCP Family Medicine; Referring Provider Obstetrics & Gynecology; Visit Provider Obstetrics & Gynecology
DX: Z12.31 Encounter for screening mammogram for malignant neoplasm of breast (principal)
CPT/HCPCS: 77063; 77067

== ENCOUNTER → 2023-02-03 | Outpatient (CLI) | payer BC, SELFPAY ==
--- NOTE | 2023-02-03 07:54 | BI_ITS ---
MAMMOGRAPHY - BILATERAL SCREENING REASON FOR EXAM: Female, 42 years old. Routine annual screening examination. PERTINENT HISTORY: Grandmother with breast cancer. TECHNIQUE: Digital bilateral breast jonel (3D mammographic acquisition) in the CC and MLO projections. 2-D mediolateral oblique (MLO) and craniocaudad (CC) views of both breasts were obtained. CAD: Full Field Digital Mammography with Computer Added Detection was performed. COMPARISON: Comparison is made with prior examination of January 16, 2022. FINDINGS: Breast Composition: The breasts are heterogeneously dense, which may obscure small masses. There are no dominant masses or suspicious calcifications. No other significant abnormalities are identified. There has been no significant change since the prior study. BI/SCRN MAMM (CAD)W/JONEL BILAT IMPRESSION: Stable bilateral screening mammogram. Yearly follow-up mammogram recommended. (A) ASSESSMENT CATEGORY: BIRADS Category 1: Negative. A letter regarding these results will be sent to the patient by the facility within 30 days. Approximately 10% of breast cancers are not detected by mammography. A normal mammogram should not delay biopsy of a clinically suspicious abnormality. [id number] Electronically Signed: Max Carranza MD at 12:41 EDT ,
== END | disposition home or self-care (01) ==
LOC: OPBI 07:53
PROVIDERS: PCP Family Medicine; Referring Provider Family Medicine; Visit Provider Family Medicine
DX: Z12.31 Encounter for screening mammogram for malignant neoplasm of breast (principal)
CPT/HCPCS: 77063; 77067

== ENCOUNTER → 2024-02-18 | Outpatient (CLI) | payer BC, SELFPAY ==
--- NOTE | 2024-02-18 08:40 | BI_ITS ---
MAMMOGRAPHY - BILATERAL SCREENING REASON FOR EXAM: Female, 43 years old. Routine annual screening examination. PERTINENT HISTORY: Grandmother with breast cancer. TECHNIQUE: Digital bilateral breast jonel (3D mammographic acquisition) in the CC and MLO projections. 2-D mediolateral oblique (MLO) and craniocaudad (CC) views of both breasts were obtained. CAD: Full Field Digital Mammography with Computer Added Detection was performed. COMPARISON: Comparison is made with prior study dated February 03, 2023 and January 16, 2022. FINDINGS: Breast Composition: There are scattered areas of fibroglandular density. There are no dominant masses or suspicious calcifications. No other significant abnormalities are identified. There has been no significant change since the prior study. BI/SCRN MAMM (CAD)W/JONEL BILAT IMPRESSION: Stable bilateral screening mammogram. Yearly follow-up mammogram recommended. (A) ASSESSMENT CATEGORY: BIRADS Category 1: Negative. A letter regarding these results will be sent to the patient by the facility within 30 days. Approximately 10% of breast cancers are not detected by mammography. A normal mammogram should not delay biopsy of a clinically suspicious abnormality. [id number] Electronically Signed: Max Carranza MD at 12:16 EDT ,
== END | disposition home or self-care (01) ==
LOC: OPBI 08:37
PROVIDERS: PCP Family Medicine; Referring Provider Family Medicine; Visit Provider Family Medicine
DX: Z12.31 Encounter for screening mammogram for malignant neoplasm of breast (principal)
CPT/HCPCS: 77063; 77067